=== PATIENT | female | born 1955 | race Caucasian/White ===

== ENCOUNTER 2021-06-01 15:59 | Emergency (ER) | payer OTHER, MEDICARE ==
[~2021-06-01] VITALS: Ht 160 cm; Wt 69.0 kg
[~2021-06-01 15:59] MED LIST: GABA25PO15 MC; HYDR-3423 PO; ONDANSETRON PF 4 MG/2 ML VIAL. IVP ONE; PRED1TAB3 PO
[2021-06-01] MEDS: fentaNYL PF VIAL 100 MCG/2 ML VIAL IV ONE ×2 (16:39→17:21)
[2021-06-01] MEDS ORDERED: fentaNYL PF VIAL 100 MCG/2 ML VIAL IVP ONE (16:45)
[2021-06-01] MEDS ORDERED: ETOMIDATE 20 MG/10 ML VIAL. IV ONE (16:45)
--- NOTE | 2021-06-01 16:47 | PHYS DOC ---
Past Medical History Past Medical History: Migraines Additional Past Medical Histor: transverse mylitis Past Surgical History: Appendectomy, Cholecystectomy, Hysterectomy, Other Additional Past Surgical Histo: sinus surgery x 5, shoulder x2 (R), bilat knee, Smoking Status: Never Smoker Alcohol Use: None General Adult EDM: Chief Complaint: UPPER EXTREMITY INJURY HPI: HPI: 65 year old female presents with severe left elbow pain. She was walking in her garden when she tripped over an object and landed with all of her weight on her left arm/elbow. She is not sure whether or not her left arm was bent or straight when she hit the ground and reports that her whole left arm has been numb since falling. She does not believe that she hit her head on the ground, but remembers seeing starts after falling. She last ate at 12:00 today and denies being on blood thinners. She was transported to the ED by EMS who administered intranasal versed and 100 mcg of Fentanyl. Review of Systems: Review of Systems: Constitutional: Denies fever or chills Eyes: Denies redness or eye pain HENT: Denies nasal congestion or sore throat Respiratory: Denies cough or shortness of breath Cardiovascular: Denies chest pain or palpitations GI: Denies abdominal pain, nausea, or vomiting : Denies dysuria or hematuria Musculoskeletal: Denies back pain. Reports severe pain Integument: Denies rash or skin lesions Neurologic: Denies headache, focal weakness. Reports numbness of whole left arm. Complete systems were reviewed and found to be within normal limits, except as documented in this note. Heart Score: C/O Chest Pain: N/A Allergies: Allergies: Allergies Coded Allergies Type Severity Reaction Last Updated Verified amoxicillin Allergy Intermediate Unknown 06/01/21 Yes cefaclor Allergy Intermediate Unknown 06/01/21 Yes cefuroxime Allergy Intermediate Unknown 06/01/21 Yes chlorhexidine Allergy Intermediate HIVES 06/01/21 Yes ciprofloxacin Allergy Intermediate Unknown 06/01/21 Yes clarithromycin Allergy Intermediate Unknown 06/01/21 Yes clavulanic acid Allergy Intermediate Unknown 06/01/21 Yes codeine Allergy Intermediate Unknown 06/01/21 Yes erythromycin base Allergy Intermediate 10/04/13 Yes minocycline Allergy Intermediate Unknown 06/01/21 Yes povidone-iodine Allergy Intermediate HIVES 06/01/21 Yes tramadol Allergy Intermediate Unknown 06/01/21 Yes Physical Exam: PE: Constitutional: Well developed, well nourished, acute distress from severe left elbow pain, non-toxic appearance HENT: Normocephalic, atraumatic Eyes: Conjunctiva normal, no discharge Neck: Normal range of motion, no tenderness, supple Lungs & Thorax: No respiratory distress, equal chest rise and fall Abdomen: Soft, no tenderness Skin: Warm, dry, no erythema, no rash Back: No tenderness Extremities: On inspection, there is a visible deformity of her left elbow with tenderness to palpation all along the joint. She has severely restricted movement of her left elbow secondary to pain and deformity. Her radial pulses are 2/4 bilaterally. Evaluation of the right elbow is normal. Neurologic: Alert and oriented X 3, normal motor function. She reports numbness of her entire left arm. Normal sensation of right arm. Psychologic: Affect normal, judgment normal Current Patient Data: Vital Signs: Vital Signs Date Time Temp Pulse Resp B/P (MAP) Pulse Ox O2 Delivery O2 Flow Rate FiO2 06/01/21 16:05 97.8 84 20 130/62 (84) 100 Room Air 97.8 EKG: EKG: [] Radiology/Procedures: Radiology/Procedures: PROCEDURE: ELBOW LEFT 3V Exam: Left elbow 2 views INDICATION: Pain deformity TECHNIQUE: Frontal and lateral views of the left elbow Comparisons: None FINDINGS: There is dislocation at the elbow joint. Superior displacement of the proximal radius and ulna. No acute fractures identified. IMPRESSION: Dislocation of the elbow joint. Reimaging post reduction to reevaluate for fractures is recommended. Electronically signed by: Braeden Roca MD (06/01/2021 5:01 PM) [facility] Course & Med Decision Making: Course & Med Decision Making Pertinent Imaging studies reviewed. (See chart for details) 65 year old female presented via EMS with left elbow dislocation after tripping and falling in her garden. She received intranasal versed and 100 mcg of Fentanyl from EMS on her way to the hospital. On arrival, IV access was acquired. Preparations were made for concious sedation and elbow reduction was performed. Patient stable for discharge with outpatient follow-up with PCP/orthopedics. Orthopedic referral provided. Discussed findings and plan with patient and family, who acknowledge understanding and agreement. Ced Disclaimer: Ced Disclaimer: This electronic medical record was generated, in whole or in part, using a voice recognition dictation system. Departure Departure Impression: Primary Impression: Elbow dislocation Qualified Codes: S53.105A - Unspecified dislocation of left ulnohumeral joint, initial encounter Disposition: HOME / SELF CARE / HOMELESS Condition: STABLE Referrals: ARMIN WESTBROOK MD (PCP) LUCIEN DOHERTY Jr. DO Patient Instructions: Arm Sling Use, [id number], Elbow Dislocation, [id number], Sedation, Moderate, Adult, Splint Care, [id number] Additional Instructions: Ice area of discomfort 20 minutes on then leave off for next 20 minutes. Repeat several times daily for the next 2 days. May also use [id number] ibuprofen as needed for pain in addition to prescribed pain medication. Scripts Hydrocodone Bit/Acetaminophen (HYDROCODONE-APAP 5-325 ) 1 Tab Tablet 0.5-1 TAB PO PRN Q6HRS PRN for PAIN, #10 TAB 0 Refills Prov: ARCADIO CROWLEY DO 06/01/21 ARCADIO CROWLEY DO Jun 01, 2021 16:47
[2021-06-01] MEDS ORDERED: IV NORMAL SALINE 1000ML BAG 1,000 ML IV ONE (17:00)
--- NOTE | 2021-06-01 17:03 | RAD ---
Exam: Left elbow 2 views INDICATION: Pain deformity TECHNIQUE: Frontal and lateral views of the left elbow Comparisons: None FINDINGS: There is dislocation at the elbow joint. Superior displacement of the proximal radius and ulna. No ac picayune fractures identified. IMPRESSION: Dislocation of the elbow joint. Reimaging post reduction to reevaluate for fractures is recommended. Electronically signed by: Braeden Roca MD (06/01/2021 5:01 PM) [facility]
[2021-06-01 17:24] VITALS: BP 143/66
[2021-06-01] MEDS ORDERED: HYDR-2761 PO ×2 (17:36→19:03)
--- NOTE | 2021-06-01 17:57 | RAD ---
Exam: Left elbow 3 views INDICATION: Status post reduction of dislocation TECHNIQUE: Frontal, lateral and oblique views of the left elbow Comparisons: None FINDINGS: Overlying splint material limits evaluation of fine osseous detail. Bone mineralization is normal. No acute fractures identified. Joint spaces are well-maintained. IMPRESSION: Improved alignment at the left elbow Electronically signed by: Braeden Roca MD (06/01/2021 5:54 PM) [facility]
[2021-06-01] MEDS ORDERED: ONDANSETRON PF 4 MG/2 ML VIAL. ONE (18:04)
[2021-06-01 18:55] VITALS: BP 129/70
[2021-06-01] MEDS ORDERED: HYDROcodone/APAP 5/325MG 1 TAB TABLET PO ONE (19:00)
== END 2021-06-01 19:00 | disposition home or self-care (01) ==
LOC: ER 15:59
DX: S53.105A Unspecified dislocation of left ulnohumeral joint, initial encounter (principal); G43.909 Migraine, unspecified, not intractable, without status migrainosus; Z88.1 Allergy status to other antibiotic agents; Z88.5 Allergy status to narcotic agent; Z88.6 Allergy status to analgesic agent; Z88.8 Allergy status to other drugs, medicaments and biological substances; W22.8XXA Striking against or struck by other objects, initial encounter; Y93.01 Activity, walking, marching and hiking; Y92.89 Other specified places as the place of occurrence of the external cause; Y99.8 Other external cause status
CPT/HCPCS: 24600; 73080; 96361; 96374; 96375; 99285; A4565; J2405; J3010; J3490; J7030